=== PATIENT | male | born 1965 | race Caucasian/White ===

== ENCOUNTER 2023-06-14 21:28 | Emergency (ER) | payer OTHER ==
[2023-06-14 21:38] VITALS: BP 166/96; PULSE 82; RESP 19; TEMP 98.6; BMI 24.3
[2023-06-14] MEDS ORDERED: LIDOCAINE HCL 1%, 10 MG/ML (20ML VIAL) ONE (21:58)
[2023-06-14] MEDS: LIDOCAINE HCL 1%, 10 MG/ML (50 mL VIAL) SQ ONE (22:52)
== END 2023-06-14 22:54 | disposition home or self-care (01) ==
LOC: JERFT 21:28 → JER 21:28 → JERFT 22:54
PROC: 0HQFXZZ Repair Right Hand Skin, External Approach (ICD-10-PCS; principal; 2023-06-14)
DX: S61.011A Laceration without foreign body of right thumb without damage to nail, initial encounter (principal); W26.8XXA Contact with other sharp object(s), not elsewhere classified, initial encounter; Y93.G1 Activity, food preparation and clean up
CPT/HCPCS: 73140-TC-RT-FY; 99283-25